=== PATIENT | female | born 1955 | race American Indian/Alaskan Native ===

== ENCOUNTER 2019-12-08 19:08 | Inpatient (IN) | payer OTHER ==
[2019-12-08] MEDS ORDERED: ONDANSETRON 4 MG/2 ML INJ IV ONE (19:56)
[2019-12-08] MEDS ORDERED: LORazepam 2 MG/ML VIAL IV ONE ×2 (19:56→22:34)
[2019-12-08] MEDS ORDERED: MORPHINE 4 MG/1 ML INJ IV ONE (19:56)
[2019-12-08 19:59] LABS: Hematocrit 37.8 % (30.3-42.9); Hemoglobin 12.5 gm/dl (10.1-14.3); Mean Corpuscular HGB Conc 33 % (30-34); Mean Corpuscular Volume 89 fl (79-97); Platelet Count 363 K/mm3 (140-440); Red Blood Count 4.26 M/mm3 (3.65-5.03); Red Cell Distribution Width 14.6 % (13.2-15.2)
--- NOTE | 2019-12-08 20:02 | Emergency Department Report ---
ED General Adult HPI - General Chief complaint: Abdominal Pain Stated complaint: ABD PAIN Time Seen by Provider: 12/08/19 19:21 Source: EMS Mode of arrival: Stretcher Limitations: Language Barrier - History of Present Illness Initial comments: Patient presents to the emergency department with a chief complaint of abdominal pain that started today. Patient states she hasn't not in the middle of her stomach. Patient also has some nausea today but denies diarrhea. Patient has chest pain, sore throat, or headache. Patient has no other complaints. -: Sudden Location: abdomen Radiation: non-radiation Severity scale (0 -10): 7 Quality: sharp Consistency: constant Improves with: none Worsens with: none Associated Symptoms: denies other symptoms Treatments Prior to Arrival: none - Related Data Home Medications Medication Instructions Recorded Confirmed Last Taken Folic Acid [Folvite] 1 mg PO QDAY 05/07/16 05/07/16 05/07/16 yes metHOTREXate(DOSE WEEKLY ONLY) 2.5 mg PO DAILY 05/07/16 05/07/16 05/07/16 [metHOTREXate (DOSE WEEKLY ONLY)] yes predniSONE [Deltasone] 50 mg PO QDAY 05/07/16 05/07/16 05/07/16 yes Allergies Allergy/AdvReac Type Severity Reaction Status Date / Time No Known Allergies Allergy Verified 11/13/13 09:40 ED Review of Systems ROS: Stated complaint: ABD PAIN Other details as noted in HPI Constitutional: denies: chills, fever Eyes: denies: eye pain, eye discharge, vision change ENT: denies: ear pain, throat pain Respiratory: denies: cough, shortness of breath, wheezing Cardiovascular: denies: chest pain, palpitations Endocrine: no symptoms reported Gastrointestinal: abdominal pain. denies: nausea, diarrhea Genitourinary: denies: urgency, dysuria, discharge Musculoskeletal: denies: back pain, joint swelling, arthralgia Skin: denies: rash, lesions Neurological: denies: headache, weakness, paresthesias Psychiatric: denies: anxiety, depression Hematological/Lymphatic: denies: easy bleeding, easy bruising ED Past Medical Hx - Past Medical History Previous Medical History?: Yes Hx Diabetes: Yes Hx Arthritis: Yes - Surgical History Past Surgical History?: Yes Additional Surgical History: fibroid - Social History Smoking Status: Never Smoker - Medications Home Medications: Home Medications Medication Instructions Recorded Confirmed Last Taken Type Folic Acid [Folvite] 1 mg PO QDAY 05/07/16 05/07/16 05/07/16 History yes metHOTREXate(DOSE WEEKLY ONLY) 2.5 mg PO DAILY 05/07/16 05/07/16 05/07/16 History [metHOTREXate (DOSE WEEKLY ONLY)] yes predniSONE [Deltasone] 50 mg PO QDAY 05/07/16 05/07/16 05/07/16 History yes ED Physical Exam - General Limitations: Language Barrier General appearance: alert, in no apparent distress - Head Head exam: Present: atraumatic, normocephalic - Eye Eye exam: Present: normal appearance, PERRL, EOMI - ENT ENT exam: Present: mucous membranes moist - Neck Neck exam: Present: normal inspection - Respiratory Respiratory exam: Present: normal lung sounds bilaterally. Absent: respiratory distress - Cardiovascular Cardiovascular Exam: Present: regular rate, normal rhythm. Absent: systolic murmur, diastolic murmur, rubs, gallop - GI/Abdominal GI/Abdominal exam: Present: soft, tenderness, normal bowel sounds, hernia, other (patient has a anterior wall abdominal hernia that is difficult to reduce ). Absent: distended - Extremities Exam Extremities exam: Present: normal inspection - Back Exam Back exam: Present: normal inspection - Neurological Exam Neurological exam: Present: alert, oriented X3 - Psychiatric Psychiatric exam: Present: normal affect, normal mood - Skin Skin exam: Present: warm, dry, intact, normal color. Absent: rash ED Course Vital Signs 12/08/19 12/08/19 12/08/19 19:32 20:10 20:13 Temperature 97.5 F L 97.5 F L Pulse Rate 62 62 Respiratory 20 20 20 Rate Blood Pressure 162/76 Blood Pressure 162/95 [Left] O2 Sat by Pulse 98 98 98 Oximetry 12/08/19 12/08/19 12/08/19 20:55 21:25 21:56 Temperature Pulse Rate 71 Respiratory 20 20 20 Rate Blood Pressure Blood Pressure 130/73 [Left] O2 Sat by Pulse 98 Oximetry - Procedure Description Procedures done: Reduction of incarcerated ventral wall hernia. Consent was obtained. Patient laid in supine position and in Trendelenburg. Propofol was used for conscious sedation. Reduction of the hernia was done with direct pressure. Abdominal binder applied. Patient tolerated procedure well. No complications ED Medical Decision Making - Lab Data Result diagrams: 12/08/19 19:39 12/08/19 19:39 Lab Results 12/08/19 12/08/19 Range/Units 19:39 19:39 WBC 6.3 (4.5-11.0) K/mm3 RBC 4.26 (3.65-5.03) M/mm3 Hgb 12.5 (10.1-14.3) gm/dl Hct 37.8 (30.3-42.9) % MCV 89 (79-97) fl MCH 29 (28-32) pg MCHC 33 (30-34) % RDW 14.6 (13.2-15.2) % Plt Count 363 (140-440) K/mm3 Baso % (Auto) Set Up [employer] Add Manual Diff Complete Total Counted 100 Seg Neuts % (Manual) 68.0 (40.0-70.0) % Band Neutrophils % 0 % Lymphocytes % (Manual) 18.0 (13.4-35.0) % Reactive Lymphs % (Man) 0 % Monocytes % (Manual) 11.0 H (0.0-7.3) % Eosinophils % (Manual) 2.0 (0.0-4.3) % Basophils % (Manual) 1.0 (0.0-1.8) % Metamyelocytes % 0 % Myelocytes % 0 % Promyelocytes % 0 % Blast Cells % 0 % Nucleated RBC % Not Reportable Seg Neutrophils # Man 4.3 (1.8-7.7) K/mm3 Band Neutrophils # 0.0 K/mm3 Lymphocytes # (Manual) 1.1 L (1.2-5.4) K/mm3 Abs React Lymphs (Man) 0.0 K/mm3 Monocytes # (Manual) 0.7 (0.0-0.8) K/mm3 Eosinophils # (Manual) 0.1 (0.0-0.4) K/mm3 Basophils # (Manual) 0.1 (0.0-0.1) K/mm3 Metamyelocytes # 0.0 K/mm3 Myelocytes # 0.0 K/mm3 Promyelocytes # 0.0 K/mm3 Blast Cells # 0.0 K/mm3 WBC Morphology Not Reportable Hypersegmented Neuts Not Reportable Hyposegmented Neuts Not Reportable Hypogranular Neuts Not Reportable Smudge Cells Not Reportable Toxic Granulation Not Reportable Toxic Vacuolation Not Reportable Dohle Bodies Not Reportable Pelger-Huet Anomaly Not Reportable Kwaku Rods Not Reportable Platelet Estimate Not Reportable Clumped Platelets Not Reportable Plt Clumps, EDTA Not Reportable Large Platelets Not Reportable Giant Platelets Not Reportable Platelet Satelliting Not Reportable Plt Morphology Comment Not Reportable RBC Morphology Normal Dimorphic RBCs Not Reportable Polychromasia Not Reportable Hypochromasia Not Reportable Poikilocytosis Not Reportable Anisocytosis Not Reportable Microcytosis Not Reportable Macrocytosis Not Reportable Spherocytes Not Reportable Pappenheimer Bodies Not Reportable Sickle Cells Not Reportable Target Cells Not Reportable Tear Drop Cells Not Reportable Ovalocytes Not Reportable Helmet Cells Not Reportable [place] Bodies Not Reportable [place] Rings Not Reportable Rosy Cells Not Reportable Bite Cells Not Reportable Crenated Cell Not Reportable Elliptocytes Not Reportable Acanthocytes (Spur) Not Reportable Rouleaux Not Reportable Hemoglobin C Crystals Not Reportable Schistocytes Not Reportable Malaria parasites Not Reportable Jorge Bodies Not Reportable Hem Pathologist Commnt No Sodium 138 (137-145) mmol/L Potassium 4.1 (3.6-5.0) mmol/L Chloride 99.7 (98-107) mmol/L Carbon Dioxide 21 L (22-30) mmol/L Anion Gap 21 mmol/L BUN 16 (7-17) mg/dL Creatinine 0.6 L (0.7-1.2) mg/dL Estimated GFR > 60 ml/min BUN/Creatinine Ratio 27 % Glucose 118 H (65-100) mg/dL Calcium 10.0 (8.4-10.2) mg/dL Total Bilirubin 0.20 (0.1-1.2) mg/dL AST 19 (5-40) units/L ALT 11 (7-56) units/L Alkaline Phosphatase 74 (35-129) units/L Total Protein 8.0 (6.3-8.2) g/dL Albumin 4.2 (3.9-5) g/dL Albumin/Globulin Ratio 1.1 % Lipase 34 (13-60) units/L - Radiology Data Radiology results: report reviewed - Medical Decision Making The patient's ventral hernia was palpated and reduction was attempted multiple times without success CT results show an incarcerated ventral wall hernia Spoke to Dr. Anya landis the patient did be sedated and an attempt made to reduce the hernia again and then admission Critical care attestation.: If time is entered above; I have spent that time in minutes in the direct care of this critically ill patient, excluding procedure time. ED Disposition Clinical Impression: Hernia, ventral Disposition: DC-09 OP ADMIT IP TO THIS HOSP Is pt being admited?: Yes Does the pt Need Aspirin: No Condition: Fair Instructions: Ventral Hernia (ED), Abdominal Pain (ED) Additional Instructions: return if worse Referrals: PRIMARY CARE, [Primary Care Provider] - 3-5 Days Time of Disposition: 23:28
[2019-12-08 20:14] LABS: Alanine Aminotransferase 11 units/L (7-56); Albumin 4.2 g/dL (3.9-5); BUN/Creatinine Ratio 27; Blood Urea Nitrogen 16 mg/dL (7-17); Hemolysis Index 9
[2019-12-08 20:43] LABS: RBC Morphology Normal; Total Cells Counted 100
--- NOTE | 2019-12-08 22:10 | Cat Scan Report ---
CT abdomen pelvis w con INDICATION: abdominal pain. TECHNIQUE: All CT scans at this location are performed using the following dose modulation technique: Automated exposure control. CONTRAST: Omnipaque 300, 100 cc IV injection. COMPARISON: None available. CT chest: The parenchymal organs are unremarkable in appearance. Negative for abdominal mass, adenopa thy or fluid collection. A midline ventral hernia approximately 5 cm above the umbilicus contains a l oop of small bowel which is dilated. There is adjacent inflammation. No significant dilatation of bow el is seen proximal or distal to the hernia. AP pelvis: Negative for mass, fluid or inflammation. Status post previous hysterectomy. The bladder is moderately distended. Diverticula at the descending and sigmoid colon's are noninflamed. IMPRESSION: 1. Incarcerated loop of small bowel at a ventral hernia anteriorly with adjacent inflammation. 2. Noninflamed colonic diverticulosis. 3. Moderate bladder distention. Signer Name: Dhruv Rene MD Signed: 12/08/2019 10:06 PM Workstation Name: [id number]
[2019-12-08] MEDS ORDERED: LORazepam 2 MG/ML VIAL ONE (22:33)
[2019-12-09] MEDS ORDERED: PROPOFOL 200 MG/20 ML VIAL IV ONE ×3 (00:09→11:54)
[2019-12-09] MEDS ORDERED: ONDANSETRON 4 MG/2 ML INJ IV ONE (00:09)
[2019-12-09] MEDS ORDERED: SODIUM CHLORIDE 0.9% 1000 ML 1,000 ML IV ONE (01:00)
[2019-12-09] MEDS ORDERED: SODIUM CHLORIDE 0.9% 1000 ML 1,000 ML ONE (01:02)
--- NOTE | 2019-12-09 02:18 | History and Physical Report ---
History of Present Illness History of present illness: 64-year-old woman with a history of hypertension, rheumatoid arthritis comes emergency room with complaints of abdominal pain that started today. She states that she took her son car to the dealer for repair, when she got home she had an acute onset of abdominal pain in the mid abdomen which he describes as a dull pain, constant, intensity 9/10, no radiation, relieved with pain medication given in the emergency room. She had 3 episodes of nausea vomiting, she was brought to the emergency room for evaluation. She was found to have incarcerated hernia, 3 attempts were made to reduce the hernia without success, she was then given sedation and the hernia was reduced on the fourth attempt Review Of Systems: Constitutional: no weight loss, chills, fever Ears, eyes, nose, mouth and throat: no nasal congestion, no nasal discharge, no sinus pressure, blurry vision, diplopia Neck: No neck pain or rigidity. Cardiovascular: No palpitations, chest pain Respiratory: No cough, shortness of breath Gastrointestinal: No hematochezia Genitourinary : no dysuria, frequency , hematuria Musculoskeletal: no muscle ache , joint pain Integumentary: no rash, no pruritis Neurological: no parathesias, focal weakness Endocrine: no cold or heat intolerance, no polyuria or polydipsia Hematologic/Lymphatic: no easy bruising, no easy bleeding, no gland swelling Allergic/Immunologic: no urticaria, no angioedema. PAST MEDICAL HISTORY: hypertension, rheumatoid arthritis PAST SURGICAL HISTORY: Removal of fibroids SOCIAL HISTORY: No alcohol, no tobacco or drugs FAMILY HISTORY: hypertension Medications and Allergies Allergies Allergy/AdvReac Type Severity Reaction Status Date / Time No Known Allergies Allergy Verified 11/13/13 09:40 Home Medications Medication Instructions Recorded Confirmed Last Taken Type Folic Acid [Folvite] 1 mg PO QDAY 05/07/16 12/09/19 05/07/16 History yes metHOTREXate(DOSE WEEKLY ONLY) 2.5 mg PO DAILY 05/07/16 12/09/19 05/07/16 History [metHOTREXate (DOSE WEEKLY ONLY)] yes predniSONE [Deltasone] 5 mg PO QDAY 05/07/16 12/09/19 05/07/16 History yes Metformin HCl [metFORMIN] 1,000 mg PO BID 12/09/19 12/09/19 Unknown History Active Meds: Active Medications Enoxaparin Sodium (Enoxaparin) 30 mg SUB-Q QDAY [facility] Exam - Physical Exam Narrative exam: Gen. appearance: Patient lying in bed, no apparent distress HEENT: Normocephalic, atraumatic, pupils equally round and reactive to light, extraocular movement intact, and no sclericterus,. No JVD or thyromegaly or nodule,neck supple, no carotid bruit ,mucous membranes moist, no exudate or erythema Heart: S1, S2, regular rate and rhythm Lungs: Clear to auscultation bilaterally, breathing comfortable Abdomen: +Abdominal binder, positive bowel sounds, nontender, nondistended, no organomegaly Extremity: No edema, cyanosis, clubbing Skin: No rash, nodules, warm, dry Neuro: Oriented 3, cranial nerves II-12 intact, speech is fluent, motor and sensory intact - Constitutional Vitals: Temp Pulse Resp BP Pulse Ox 97.5 F L 77 20 142/77 99 12/08/19 20:13 12/09/19 01:00 12/09/19 01:00 12/09/19 01:00 12/09/19 01:00 Results - Labs CBC & Chem 7: 12/08/19 19:39 12/08/19 19:39 Labs: Abnormal lab results 12/08/19 12/08/19 Range/Units 19:39 19:39 Monocytes % (Manual) 11.0 H (0.0-7.3) % Lymphocytes # (Manual) 1.1 L (1.2-5.4) K/mm3 Carbon Dioxide 21 L (22-30) mmol/L Creatinine 0.6 L (0.7-1.2) mg/dL Glucose 118 H (65-100) mg/dL - Imaging and Cardiology CT scan - abdomen: report reviewed CT scan - pelvis: report reviewed Assessment and Plan Assessment Incarcerated hernia, status post reduction N.p.o., start IV fluid, surgery was consulted see the patient Start IV morphine Hypertension IV hydralazine as needed for blood pressure control History of rheumatoid arthritis on chronic steroid Start stress dose IV steroids DVT prophylaxis
[2019-12-09] MEDS ORDERED: ONDANSETRON 4 MG/2 ML INJ IV PRN ×3 (03:27→15:42)
[2019-12-09] MEDS ORDERED: ACETAMINOPHEN 650 MG RECT SUPP PR PRN (03:27)
[2019-12-09] MEDS ORDERED: hydrALAZINE 20 MG/1 ML INJ IV PRN (03:34)
[2019-12-09] MEDS ORDERED: SODIUM CHLORIDE 0.45% 1000 ML 1,000 ML IV ONE (03:38)
[2019-12-09] MEDS ORDERED: SODIUM CHLORIDE 0.45% 1000 ML 1,000 ML IV SCH (04:00)
[2019-12-09 04:23] LABS: Bilirubin,Urine NEG (Negative); Blood,Urine NEG (Negative); Color,Urine Straw (Yellow); Mucus,Urine FEW /HPF; Protein,Urine <15 mg/dL mg/dL (Negative); Urobilinogen,Urine < 2.0 mg/dL (<2.0)
[2019-12-09] MEDS: HYDROCORTISONE SOD SUCC 100 MG/2 ML VIAL IV SCH ×2 (06:01→14:04)
[2019-12-09 08:50] LABS: Basophils # (Auto) 0.1 K/mm3 (0.0-0.1); Basophils % (Auto) 0.8 % (0.0-1.8); Eosinophils # (Auto) 0.1 K/mm3 (0.0-0.4); Hematocrit 37.8 % (30.3-42.9); Hemoglobin 12.4 gm/dl (10.1-14.3); Lymphocytes % (Auto) 16.5 % (13.4-35.0); Mean Corpuscular HGB Conc 33 % (30-34); Mean Corpuscular Volume 88 fl (79-97); Monocytes # (Auto) 0.3 K/mm3 (0.0-0.8); Monocytes % (Auto) 5.2 % (0.0-7.3); Platelet Count 381 K/mm3 (140-440); Red Blood Count 4.28 M/mm3 (3.65-5.03); Red Cell Distribution Width 14.7 % (13.2-15.2)
[2019-12-09 09:15] LABS: BUN/Creatinine Ratio 15; Blood Urea Nitrogen 9 mg/dL (7-17); Calcium 9.4 mg/dL (8.4-10.2); Hemolysis Index 4
--- NOTE | 2019-12-09 09:15 | Consultation ---
History of Present Illness Consult date: 12/09/19 Reason for consult: hernia Chief complaint: abdominal pain - History of present illness History of present illness: 64 year old female presented to ED with a several hour history of acute abdominal pain and palpable 'knot' on her abdominal wall. she says she has never had this before and she complained of some nausea. CT scan showed ventral hernia with incarcerated small bowel. The ED was able to reduce the hernia under conscious sedation. This morning she says her pain is improved compared to pre-r eduction but still significant. Past History Past Medical History: arthritis, diabetes Past Surgical History: Other (pelvic surgery) Social history: no significant social history Medications and Allergies Allergies Allergy/AdvReac Type Severity Reaction Status Date / Time No Known Allergies Allergy Verified 11/13/13 09:40 Home Medications Medication Instructions Recorded Confirmed Last Taken Type Folic Acid [Folvite] 1 mg PO QDAY 05/07/16 12/09/19 05/07/16 History yes metHOTREXate(DOSE WEEKLY ONLY) 2.5 mg PO DAILY 05/07/16 12/09/19 05/07/16 History [metHOTREXate (DOSE WEEKLY ONLY)] yes predniSONE [Deltasone] 5 mg PO QDAY 05/07/16 12/09/19 05/07/16 History yes Metformin HCl [metFORMIN] 1,000 mg PO BID 12/09/19 12/09/19 Unknown History Active Meds: Active Medications Acetaminophen (Tylenol) 650 mg GA Q4H PRN PRN Reason: Pain MILD(1-3)/Fever >100.5/CURRY Enoxaparin Sodium (Enoxaparin) 40 mg SUB-Q QDAY [facility] Hydralazine HCl (Apresoline) 5 mg IV Q6H PRN PRN Reason: Hypertension Hydrocortisone Sodium Succinate (Solu-Cortef) 100 mg IV Q8HR [facility] Last Admin: 12/09/19 06:01 Dose: 100 mg Documented by: Sodium Chloride (Nacl 0.45% 1000 Ml) 1,000 mls @ 75 mls/hr IV DIRECT [facility] Last Admin: 12/09/19 03:39 Dose: 75 mls/hr Documented by: Morphine Sulfate (Morphine) 2 mg IV Q4H PRN PRN Reason: Pain, Moderate (4-6) Ondansetron HCl (Zofran) 4 mg IV Q8H PRN PRN Reason: Nausea And Vomiting Sodium Chloride (Sodium Chloride Flush Syringe 10 Ml) 10 ml IV BID [facility]AMA Sodium Chloride (Sodium Chloride Flush Syringe 10 Ml) 10 ml IV PRN PRN PRN Reason: LINE FLUSH Review of Systems - Respiratory no shortness of breath - Gastrointestinal abdominal pain, nausea Exam Vital Signs Temp Pulse Resp BP Pulse Ox 97.5 F L 62 20 162/76 98 12/08/19 19:32 12/08/19 19:32 12/08/19 19:32 12/08/19 19:32 12/08/19 19:32 - General physical appearance Positive: well developed, well nourished, moderate distress - Respiratory Positive: normal expansion, normal respiratory effort - Abdomen Abdomen: Present: soft, tender, other (abdominal binder in place, hernia feels partially reduced. tender to palpation. ). Absent: rigid Results - Labs 12/09/19 08:08 12/08/19 19:39 Abnormal lab results 12/08/19 12/08/19 12/09/19 Range/Units 19:39 19:39 02:12 Lymph # (1.2-5.4) K/mm3 Seg Neutrophils % (40.0-70.0) % Monocytes % (Manual) 11.0 H (0.0-7.3) % Lymphocytes # (Manual) 1.1 L (1.2-5.4) K/mm3 Carbon Dioxide 21 L (22-30) mmol/L Creatinine 0.6 L (0.7-1.2) mg/dL Glucose 118 H (65-100) mg/dL Ur Specific [place] 1.034 H (1.003-1.030) 12/09/19 Range/Units 08:08 Lymph # 1.0 L (1.2-5.4) K/mm3 Seg Neutrophils % 76.5 H (40.0-70.0) % Monocytes % (Manual) (0.0-7.3) % Lymphocytes # (Manual) (1.2-5.4) K/mm3 Carbon Dioxide (22-30) mmol/L Creatinine (0.7-1.2) mg/dL Glucose (65-100) mg/dL Ur Specific [place] (1.003-1.030) Diabetes panel 12/08/19 Range/Units 19:39 Sodium 138 (137-145) mmol/L Potassium 4.1 (3.6-5.0) mmol/L Chloride 99.7 (98-107) mmol/L Carbon Dioxide 21 L (22-30) mmol/L BUN 16 (7-17) mg/dL Creatinine 0.6 L (0.7-1.2) mg/dL Glucose 118 H (65-100) mg/dL Calcium 10.0 (8.4-10.2) mg/dL AST 19 (5-40) units/L ALT 11 (7-56) units/L Alkaline Phosphatase 74 (35-129) units/L Total Protein 8.0 (6.3-8.2) g/dL Albumin 4.2 (3.9-5) g/dL Calcium panel 12/08/19 Range/Units 19:39 Calcium 10.0 (8.4-10.2) mg/dL Albumin 4.2 (3.9-5) g/dL Pituitary panel 12/08/19 Range/Units 19:39 Sodium 138 (137-145) mmol/L Potassium 4.1 (3.6-5.0) mmol/L Chloride 99.7 (98-107) mmol/L Carbon Dioxide 21 L (22-30) mmol/L BUN 16 (7-17) mg/dL Creatinine 0.6 L (0.7-1.2) mg/dL Glucose 118 H (65-100) mg/dL Calcium 10.0 (8.4-10.2) mg/dL Adrenal panel 12/08/19 Range/Units 19:39 Sodium 138 (137-145) mmol/L Potassium 4.1 (3.6-5.0) mmol/L Chloride 99.7 (98-107) mmol/L Carbon Dioxide 21 L (22-30) mmol/L BUN 16 (7-17) mg/dL Creatinine 0.6 L (0.7-1.2) mg/dL Glucose 118 H (65-100) mg/dL Calcium 10.0 (8.4-10.2) mg/dL Total Bilirubin 0.20 (0.1-1.2) mg/dL AST 19 (5-40) units/L ALT 11 (7-56) units/L Alkaline Phosphatase 74 (35-129) units/L Total Protein 8.0 (6.3-8.2) g/dL Albumin 4.2 (3.9-5) g/dL Assessment and Plan incarcerated ventral hernia with incomplete reduction of small bowel. stable and afebrile. Spoke with patient and son over the phone and explained risks, benefits of lap ventral hernia repair with mesh, and would evaluate the viability of bowel during surgery. pt scheduled for urgent ventral hernia repair. keep NPO and with abdominal binder in place.
[2019-12-09] MEDS: MORPHINE 2 MG/1 ML INJ IV PRN (09:43)
--- NOTE | 2019-12-09 11:15 | Anesthesia Consultation ---
Anesthesia Consult and Med Hx Date of service: 12/09/19 - Airway Anesthetic Teeth Evaluation: Good ROM Head & Neck: Adequate Mental/Hyoid Distance: Adequate Mallampati Class: Class III Intubation Access Assessment: Probably Good - Pre-Operative Health Status ASA Pre-Surgery Classification: ASA3 Proposed Anesthetic Plan: General - Pulmonary Hx Asthma: No COPD: No Hx Pneumonia: No - Cardiovascular System Hx Hypertension: Yes - Central Nervous System Hx Psychiatric Problems: No - Gastrointestinal Hx Gastroesophageal Reflux Disease: Yes - Endocrine Hx End Stage Renal Disease: No Hx Non-Insulin Dependent Diabetes: Yes
--- NOTE | 2019-12-09 11:15 | Anesthesia Day of Surgery ---
Anesthesia Day of Surgery - Day of Surgery Patient Examined: Yes Patient H&P Reviewed: Yes Patient is NPO: Yes Beta Blockers: No
[2019-12-09] MEDS ORDERED: ROCURONIUM 50 MG/5 ML INJ IV ONE (11:54)
[2019-12-09] MEDS ORDERED: LIDOCAINE MPF (2%) 20 MG/1 ML VIAL 5 ML ONE (11:54)
[2019-12-09] MEDS ORDERED: MIDAZOLAM 2 MG/2 ML INJ ONE (11:54)
[2019-12-09] MEDS ORDERED: fentaNYL 100 MCG/2 ML INJ ONE (11:54)
[2019-12-09] MEDS ORDERED: HYDROmorphone 1 MG/1 ML INJ IV PRN (11:55)
[2019-12-09] MEDS ORDERED: LACTATED RINGERS 1,000 ML ONE (12:16)
[2019-12-09] MEDS ORDERED: BUPIVACAINE/PF (0.25%) 2.5 MG/ML 30 ML VIAL INFILTRATI ONE (12:42)
[2019-12-09] MEDS ORDERED: LIDOCAINE 1%/EPINEPHRINE 1:100,000 VIAL (20 ML) INFILTRATI ONE ×2 (12:42→12:47)
[2019-12-09] MEDS ORDERED: BUPIVACAINE/PF (0.5%) 5 MG/1 ML 30 ML VIAL INFILTRATI ONE ×2 (12:43→12:47)
[2019-12-09] MEDS: ENOXAPARIN 40 MG/0.4 ML INJ SUB-Q SCH (12:43)
[2019-12-09] MEDS ORDERED: SODIUM CHLORIDE 0.9% IRR 1,000 ML BOTTLE IR ONE (12:47)
[2019-12-09] MEDS ORDERED: PHENYLEPHRINE/NS 1,000 MCG/10 ML SYRINGE (OR USE) IV ONE (12:52)
[2019-12-09] MEDS ORDERED: dexAMETHasone 20 MG/5 ML VIAL ONE (13:10)
[2019-12-09] MEDS ORDERED: NEOSTIGMINE 10MG/10 ML INJ MDV ONE (13:10)
[2019-12-09] MEDS ORDERED: GLYCOPYRROLATE 0.4 MG/2 ML INJ ONE (13:10)
[2019-12-09] MEDS ORDERED: KETOROLAC 30 MG/1 ML INJ ONE (13:10)
[2019-12-09] MEDS ORDERED: ONDANSETRON 4 MG/2 ML INJ ONE (13:10)
[2019-12-09] MEDS ORDERED: HYDROmorphone 1 MG/1 ML INJ ONE (13:11)
--- NOTE | 2019-12-09 16:15 | Progress Note ---
Assessment and Plan Assessment and plan: --Incarcerated ventral hernia ; Status post laparoscopic-assisted open reduction and primary repair of ventral hernia Segmental small bowel resection and anastomosis Patient tolerated the procedure well --Hypertension; moderate control IV hydralazine as needed for blood pressure control --History of rheumatoid arthritis on chronic steroid Start stress dose IV steroids --DVT prophylaxis; Lovenox --Full CODE STATUS Monitor closely and adjust management as needed Consults and recommendations noted and appreciated Advanced care, 32 minutes History Interval history: Patient seen and examined medical records reviewed Admitted with incarcerated ventral hernia with ischemic small bowel Status post laparoscopic-assisted open reduction and primary repair of ventral hernia Segmental small bowel resection and anastomosis Patient tolerated the procedure well Hospitalist Physical - Constitutional Vitals: Temp Pulse Resp BP Pulse Ox 97.6 F 70 16 117/73 97 12/09/19 15:48 12/09/19 15:48 12/09/19 15:48 12/09/19 15:48 12/09/19 15:48 General appearance: Present: mild distress, well-nourished, obese - EENT Eyes: Present: PERRL, EOM intact - Neck Neck: Present: supple, normal ROM - Respiratory Respiratory effort: normal Respiratory: bilateral: diminished, negative: rales, rhonchi, wheezing - Cardiovascular Rhythm: regular Heart Sounds: Present: S1 & S2 - Extremities Extremities: no ischemia, pulses intact - Abdominal General gastrointestinal: soft, tender (guarding or rigidity), non-distended, hypoactive bowel sounds - Integumentary Integumentary: Present: clear, warm - Psychiatric Psychiatric: appropriate mood/affect, cooperative - Neurologic Neurologic: CNII-XII intact, moves all extremities EDWIN score - Edwin Score Age > 65: (0) No Aspirin use within the Past 7 Days: (0) No 3 or more CAD Risk Factors: (0) No 2 or more Angina events in past 24 hrs: (0) No Known CAD with more than 50% Stenosis: (0) No Elevated Cardiac Markers: (0) No ST Deviation Greater than 0.5mm: (0) No EDWIN Score: 0 Results - Labs CBC & Chem 7: 12/09/19 08:08 12/09/19 08:08 Labs: Laboratory Last Values WBC 6.3 K/mm3 (4.5-11.0) 12/09/19 08:08 RBC 4.28 M/mm3 (3.65-5.03) 12/09/19 08:08 Hgb 12.4 gm/dl (10.1-14.3) 12/09/19 08:08 Hct 37.8 % (30.3-42.9) 12/09/19 08:08 MCV 88 fl (79-97) 12/09/19 08:08 MCH 29 pg (28-32) 12/09/19 08:08 MCHC 33 % (30-34) 12/09/19 08:08 RDW 14.7 % (13.2-15.2) 12/09/19 08:08 Plt Count 381 K/mm3 (140-440) 12/09/19 08:08 Lymph % (Auto) 16.5 % (13.4-35.0) 12/09/19 08:08 Coffee % (Auto) 5.2 % (0.0-7.3) 12/09/19 08:08 Eos % (Auto) 1.0 % (0.0-4.3) 12/09/19 08:08 Baso % (Auto) 0.8 % (0.0-1.8) 12/09/19 08:08 Lymph # 1.0 K/mm3 (1.2-5.4) L 12/09/19 08:08 Coffee # 0.3 K/mm3 (0.0-0.8) 12/09/19 08:08 Eos # 0.1 K/mm3 (0.0-0.4) 12/09/19 08:08 Baso # 0.1 K/mm3 (0.0-0.1) 12/09/19 08:08 Add Manual Diff Complete 12/08/19 19:39 Total Counted 100 12/08/19 19:39 Seg Neutrophils % 76.5 % (40.0-70.0) H 12/09/19 08:08 Seg Neuts % (Manual) 68.0 % (40.0-70.0) 12/08/19 19:39 Band Neutrophils % 0 % 12/08/19 19:39 Lymphocytes % (Manual) 18.0 % (13.4-35.0) 12/08/19 19:39 Reactive Lymphs % (Man) 0 % 12/08/19 19:39 Monocytes % (Manual) 11.0 % (0.0-7.3) H 12/08/19 19:39 Eosinophils % (Manual) 2.0 % (0.0-4.3) 12/08/19 19:39 Basophils % (Manual) 1.0 % (0.0-1.8) 12/08/19 19:39 Metamyelocytes % 0 % 12/08/19 19:39 Myelocytes % 0 % 12/08/19 19:39 Promyelocytes % 0 % 12/08/19 19:39 Blast Cells % 0 % 12/08/19 19:39 Nucleated RBC % Not Reportable 12/08/19 19:39 Seg Neutrophils # 4.8 K/mm3 (1.8-7.7) 12/09/19 08:08 Seg Neutrophils # Man 4.3 K/mm3 (1.8-7.7) 12/08/19 19:39 Band Neutrophils # 0.0 K/mm3 12/08/19 19:39 Lymphocytes # (Manual) 1.1 K/mm3 (1.2-5.4) L 12/08/19 19:39 Abs React Lymphs (Man) 0.0 K/mm3 12/08/19 19:39 Monocytes # (Manual) 0.7 K/mm3 (0.0-0.8) 12/08/19 19:39 Eosinophils # (Manual) 0.1 K/mm3 (0.0-0.4) 12/08/19 19:39 Basophils # (Manual) 0.1 K/mm3 (0.0-0.1) 12/08/19 19:39 Metamyelocytes # 0.0 K/mm3 12/08/19 19:39 Myelocytes # 0.0 K/mm3 12/08/19 19:39 Promyelocytes # 0.0 K/mm3 12/08/19 19:39 Blast Cells # 0.0 K/mm3 12/08/19 19:39 WBC Morphology Not Reportable 12/08/19 19:39 Hypersegmented Neuts Not Reportable 12/08/19 19:39 Hyposegmented Neuts Not Reportable 12/08/19 19:39 Hypogranular Neuts Not Reportable 12/08/19 19:39 Smudge Cells Not Reportable 12/08/19 19:39 Toxic Granulation Not Reportable 12/08/19 19:39 Toxic Vacuolation Not Reportable 12/08/19 19:39 Dohle Bodies Not Reportable 12/08/19 19:39 Pelger-Huet Anomaly Not Reportable 12/08/19 19:39 Kwaku Rods Not Reportable 12/08/19 19:39 Platelet Estimate Not Reportable 12/08/19 19:39 Clumped Platelets Not Reportable 12/08/19 19:39 Plt Clumps, EDTA Not Reportable 12/08/19 19:39 Large Platelets Not Reportable 12/08/19 19:39 Giant Platelets Not Reportable 12/08/19 19:39 Platelet Satelliting Not Reportable 12/08/19 19:39 Plt Morphology Comment Not Reportable 12/08/19 19:39 RBC Morphology Normal 12/08/19 19:39 Dimorphic RBCs Not Reportable 12/08/19 19:39 Polychromasia Not Reportable 12/08/19 19:39 Hypochromasia Not Reportable 12/08/19 19:39 Poikilocytosis Not Reportable 12/08/19 19:39 Anisocytosis Not Reportable 12/08/19 19:39 Microcytosis Not Reportable 12/08/19 19:39 Macrocytosis Not Reportable 12/08/19 19:39 Spherocytes Not Reportable 12/08/19 19:39 Pappenheimer Bodies Not Reportable 12/08/19 19:39 Sickle Cells Not Reportable 12/08/19 19:39 Target Cells Not Reportable 12/08/19 19:39 Tear Drop Cells Not Reportable 12/08/19 19:39 Ovalocytes Not Reportable 12/08/19 19:39 Helmet Cells Not Reportable 12/08/19 19:39 Richards-[place] Bodies Not Reportable 12/08/19 19:39 Rochert Rings Not Reportable 12/08/19 19:39 Rosy Cells Not Reportable 12/08/19 19:39 Bite Cells Not Reportable 12/08/19 19:39 Crenated Cell Not Reportable 12/08/19 19:39 Elliptocytes Not Reportable 12/08/19 19:39 Acanthocytes (Spur) Not Reportable 12/08/19 19:39 Rouleaux Not Reportable 12/08/19 19:39 Hemoglobin C Crystals Not Reportable 12/08/19 19:39 Schistocytes Not Reportable 12/08/19 19:39 Malaria parasites Not Reportable 12/08/19 19:39 Jorge Bodies Not Reportable 12/08/19 19:39 Hem Pathologist Commnt No 12/08/19 19:39 Sodium 139 mmol/L (137-145) 12/09/19 08:08 Potassium 4.1 mmol/L (3.6-5.0) 12/09/19 08:08 Chloride 102.9 mmol/L (98-107) 12/09/19 08:08 Carbon Dioxide 20 mmol/L (22-30) L 12/09/19 08:08 Anion Gap 20 mmol/L 12/09/19 08:08 BUN 9 mg/dL (7-17) 12/09/19 08:08 Creatinine 0.6 mg/dL (0.7-1.2) L 12/09/19 08:08 Estimated GFR > 60 ml/min 12/09/19 08:08 BUN/Creatinine Ratio 15 % 12/09/19 08:08 Glucose 102 mg/dL (65-100) H 12/09/19 08:08 Lactic Acid 1.00 mmol/L (0.7-2.0) 12/09/19 09:36 Calcium 9.4 mg/dL (8.4-10.2) 12/09/19 08:08 Total Bilirubin 0.20 mg/dL (0.1-1.2) 12/08/19 19:39 AST 19 units/L (5-40) 12/08/19 19:39 ALT 11 units/L (7-56) 12/08/19 19:39 Alkaline Phosphatase 74 units/L (35-129) 12/08/19 19:39 Total Protein 8.0 g/dL (6.3-8.2) 12/08/19 19:39 Albumin 4.2 g/dL (3.9-5) 12/08/19 19:39 Albumin/Globulin Ratio 1.1 % 12/08/19 19:39 Lipase 34 units/L (13-60) 12/08/19 19:39 Urine Color Straw (Yellow) 12/09/19 02:12 Urine Turbidity Clear (Clear) 12/09/19 02:12 Urine pH 7.0 (5.0-7.0) 12/09/19 02:12 Ur Specific [place] 1.034 (1.003-1.030) H 12/09/19 02:12 Urine Protein <15 mg/dl mg/dL (Negative) 12/09/19 02:12 Urine Glucose (UA) Neg mg/dL (Negative) 12/09/19 02:12 Urine Ketones 20 mg/dL (Negative) 12/09/19 02:12 Urine Blood Neg (Negative) 12/09/19 02:12 Urine Nitrite Neg (Negative) 12/09/19 02:12 Urine Bilirubin Neg (Negative) 12/09/19 02:12 Urine Urobilinogen < 2.0 mg/dL (<2.0) 12/09/19 02:12 Ur Leukocyte Esterase Sm (Negative) 12/09/19 02:12 Urine WBC (Auto) 3.0 /HPF (0.0-6.0) 12/09/19 02:12 Urine RBC (Auto) 1.0 /HPF (0.0-6.0) 12/09/19 02:12 U Epithel Cells (Auto) 1.0 /HPF (0-13.0) 12/09/19 02:12 Urine Mucus Few /HPF 12/09/19 02:12 Active Medications - Current Medications Current Medications: Generic Name Dose Route Start Last Admin Trade Name Freq PRN Reason Stop Dose Admin Acetaminophen 650 mg 12/09/19 03:27 Tylenol GA Q4H PRN Pain MILD(1-3)/Fever >100.5/CURRY Enoxaparin Sodium 40 mg 12/09/19 10:00 12/09/19 12:43 Enoxaparin SUB-Q Not Given QDAY USAMA Hydralazine HCl 5 mg 12/09/19 03:34 Apresoline IV Q6H PRN Hypertension Hydromorphone HCl 0.5 mg 12/09/19 11:55 Dilaudid IV 12/09/19 23:00 Q10MIN PRN Pain , Severe (7-10) Sodium Chloride 1,000 mls @ 75 mls/hr 12/09/19 04:00 12/09/19 03:39 Nacl 0.45% 1000 Ml IV 75 mls/hr DIRECT USAMA Administration Lactated Ringer's 1,000 mls @ 42 mls/hr 12/09/19 12:00 Lactated Ringers IV DIRECT USAMA Levofloxacin/Dextrose 500 mg in 100 mls @ 100 mls/hr 12/10/19 10:00 Levaquin 500mg/100ml IV Q24HR [facility] Protocol Morphine Sulfate 2 mg 12/09/19 03:27 12/09/19 09:43 Morphine IV 2 mg Q4H PRN Administration Pain, Moderate (4-6) Ondansetron HCl 4 mg 12/09/19 11:55 Zofran IV 12/09/19 20:00 ONCE PRN Nausea And Vomiting Ondansetron HCl 4 mg 12/09/19 15:42 Zofran IV Q4H PRN Nausea And Vomiting Sodium Chloride 10 ml 12/09/19 10:00 12/09/19 09:44 Sodium Chloride Flush Syringe 10 Ml IV 10 ml BID USAMA Administration Sodium Chloride 10 ml 12/09/19 03:27 Sodium Chloride Flush Syringe 10 Ml IV PRN PRN LINE FLUSH
--- NOTE | 2019-12-09 16:16 | Operative Report ---
Operative Report Operative Report: DATE: 12/09/2019 SURGEON: SUZANNE GARCIA MD [employer] CONSULTANT SURGEON: CHELSEA HART MD PRE-OP DX: INCARCERATED VENTRAL HERNIA POST-OP DX: INCARCERATED VENTRAL HERNIA WITH ISCHEMIC SMALL BOWEL ANESTHESIA: GETA SPECIMEN: SEGMENT OF SMALL BOWEL, HERNIA SAC EBL: <10ML PROCEDURE: 1. LAPAROSCOPIC ASSISTED OPEN REDUCTION AND PRIMARY REPAIR OF VENTRAL HERNIA 2. SEGMENTAL SMALL BOWEL RESECTION AND ANASTAMOSIS INDICATION: 64 YEAR OLD FEMALE WHO PRESENTED TO THE ED WITH VENTRAL HERNIA THAT WAS INCARCERATED WITH SMALL BOWEL. IT WAS REDUCED IN THE ED, BUT BECAME INCARCERATED AGAIN. SHE WAS CONSENTED FOR URGENT REDUCTION AND REPAIR. DETAILS OF PROCEDURE: PT WAS BROUGHT INTO OR SUITE AND LAID IN SUPINE POSITION. BILATERAL LOWER EXTREMITY SCD WERE PLACED. GENERAL ANESTHESIA WAS INDUCED WITH SUCCESSFUL ENDOTRACHEAL INTUBATION. A VALLADARES CATHETER WAS INSERTED UNDER STERILE CONDITIONS. HER ABDOMEN WAS PREPPED AND DRAPED IN STERILE FASHION. EVEN AFTER PARALYSIS WE WERE UNABLE TO REDUCE THE HERNIA. A VERESS NEEDLE WAS USED TO INSUFLATE THE ABDOMEN TO A PRESSURE OF 15 MMHG VIA A STAB WOUND TO THE LEFT SUB COSTAL REGION. USING OPTIVEW TECHNIQUE A 5MM TROCAR WAS PLACED IN THE RIGHT UPPER QUADRANT. A SECOND 5MM TROCAR WAS PLACED UNDER DIRECT VISUALIZATION IN THE RIGHT MID ABDOMEN. IT WAS ATTEMPTED TO REDUCE THE HERNIA WITH INTRA-ABDOMINAL TRACTION AND EXTERNAL PRESSURE. FOR FEAR OF INJURING THE BOWEL OR MESENTARY IT WAS DECIDED TO MAKE AN INCISION OVER THE HERNIA SAC AND DISSECT DOWN TO THE FASCIA. THE HERNIA NECK WAS NOTED TO BE TIGHT AND RELATIVELY SMALL AND ABOUT 2.5CM IN GREATEST DIAMETER. THE FASCIA WAS INCISED AND STRETCHED TO LOOSEN IT. THE HERNIA CONTENTS WERE THEN MANUALLY REDUCED INTO THE ABDOMINAL CAVITY. THE HERNIA SAC WAS EXCISED AND SENT FOR SPECIMEN. THE FASCIAL DEFECT WAS ENLARGED A SMALL AMOUNT IN THE HORIZONTAL DIRECTION. THE FASCIAL CLOSING WAS TEMPORARILY CLOSED AND THE ABDOMEN WAS INSUFLATTED. THE SMALL BOWEL THAT WAS INCARCERATED WAS NOTED TO BE SIGNIFICANTLY ISCHEMIC, A LENGTH THAT MEASURED ABOUT 3CM. IT WAS DECIDED TO RESECT THAT PORTION OF SMALL BOWEL AND WAS EXTERIORIZED THROUGH THE FASCIA DEFECT. A SIDE TO SIDE ANASTAMOSIS WAS PERFORMED BETWEEN TWO VIABLE ADJACENT LIMBS OF SMALL BOWEL WITH A LAURI STAPLER, AND THE ENTEROTOMY WAS CLOSED WITH A SECOND FIRING OF THE LAURI. THE MESENTARY WAS THEN TRANSECTED WITH THE ENSEAL DEVICE. THE MESENTERIC DEFECT WAS CLOSED WITH A RUNNING VICRYL. THE STABLE LINE WAS IMBRICATED WITH A SILK SUTURE AFTER THE ANASTAMOSIS WAS CHECKED FOR PATENCY. IT WAS REDUCED INTO THE ABDOMINAL CAVITY. THE FASCIA WAS CLOSED WITH A RUNNING PROLENE SUTURE, AND THE ABDOMINAL CAVITY WAS INSFULATED AND THE FACSIA DEFECT WAS INSPECTED AND FOUND TO BE ADEQUATE. THE ABDOMEN WAS DESUFLATED AND THE HERNIA INCISION WAS CLOSED IN LAYERED FASHION WITH VICRYL FOLLOWED BY MONOCRYL AT THE SKIN. THE TROCAR INCISIONS WERE ALSO CLOSED WITH MONOCRYL. FOLLOWED BY DERMABOND. PATIENT WAS AWOKEN AND TAKEN TO RECOVERY IN STABLE CONDITION. ALL COUNTS WERE CORRECT. COMPLICATIONS: NONE IMMEDIATE
[2019-12-09] MEDS: INSULIN LISPRO 100 UNIT/ML SUB-Q SCH ×2 (18:14→18:24)
--- NOTE | 2019-12-09 21:50 | Post Anesthesia Evaluation ---
- Post Anesthesia Evaluation Patient Participated: Yes Airway Patent: Yes Stable Respiratory Function: Yes Nausea/Vomiting: No Temp > 96.8F: Yes Pain Manageable: Yes Adequeate Hydration: Yes Anesthesia Complications: No Block Receding Appropriately: Not Applicable Patient on Ventilator: No
[2019-12-09] MEDS: LACTATED RINGERS 1,000 ML IV SCH (22:02)
[2019-12-10] MEDS: INSULIN LISPRO 100 UNIT/ML SUB-Q SCH ×4 (00:18→20:29)
[2019-12-10] MEDS: MORPHINE 2 MG/1 ML INJ IV PRN ×2 (04:17→13:35)
[2019-12-10 08:10] LABS: Hematocrit 37.5 % (30.3-42.9); Hemoglobin 12.3 gm/dl (10.1-14.3); Mean Corpuscular HGB Conc 33 % (30-34); Mean Corpuscular Volume 89 fl (79-97); Platelet Count 385 K/mm3 (140-440); Red Blood Count 4.23 M/mm3 (3.65-5.03); Red Cell Distribution Width 14.5 % (13.2-15.2)
[2019-12-10 09:14] LABS: Anisocytosis Few; Basophils % (Manual) 0 % (0.0-1.8); Eosinophils % (Manual) 0 % (0.0-4.3); Giant Platelets Rare; Platelet Estimate Consistent w Auto; Total Cells Counted 100
[2019-12-10] MEDS: ENOXAPARIN 40 MG/0.4 ML INJ SUB-Q SCH (10:14)
--- NOTE | 2019-12-10 11:16 | Progress Note ---
Assessment and Plan POD#1 s/p open ventral hernia repair with small bowel incarceration and resection of necrotic small bowel. stable, afebrile. will start clear liquids to day and advance as tolerated. pt should wear abdominal binder at all times. If she does well overnight and morning labs (wbc) trending down can discharge tomorrow. elevated wbc may be due inflammatory response after releasing cytokines into the the blood stream after release of strangulated small bowel segment. Subjective Date of service: 12/10/19 Patient Reports: Positive: feels better. Negative: vomiting (no acute events overnight. Pt says she feels much better and not really having pain. ) Objective Vital Signs - 12hr 12/10/19 12/10/19 12/10/19 00:02 04:16 07:51 Temperature 97.4 F L 98.6 F 98.7 F Pulse Rate 90 114 H 89 Respiratory 16 16 18 Rate Blood Pressure 138/77 117/80 115/85 O2 Sat by Pulse 97 94 96 Oximetry - General physical appearance well developed, well nourished, no distress - Respiratory normal expansion, normal respiratory effort - Abdomen soft, other (abdominal binder in place, appropriatley tender to deep palpation) - Labs 12/10/19 07:53 12/09/19 08:08
--- NOTE | 2019-12-10 18:22 | Progress Note ---
Assessment and Plan Assessment and plan: --Incarcerated ventral hernia ; Status post laparoscopic-assisted open reduction and primary repair of ventral hernia Segmental small bowel resection and anastomosis Surgery following, started clear liquids Continue postop care --Hypertension; moderate control IV hydralazine as needed for blood pressure control --History of rheumatoid arthritis on chronic steroid Start stress dose IV steroids --DVT prophylaxis; Lovenox --Full CODE STATUS Monitor closely and adjust management as needed Consults and recommendations noted and appreciated Plan of care is reviewed with the patient History Interval history: POD#1 s/p open ventral hernia repair with small bowel incarceration and resection of necrotic small bowel. Patient seen and examined Patient is afebrile. Patient c/o some abd pain. Denies nausea and vomiting surg started clear liquids to day and advance as tolerated. Hospitalist Physical - Constitutional Vitals: Temp Pulse Resp BP Pulse Ox 98.7 F 113 H 18 127/84 94 12/10/19 15:39 12/10/19 15:39 12/10/19 15:39 12/10/19 15:39 12/10/19 15:39 General appearance: Present: no acute distress, well-nourished, obese - EENT Eyes: Present: PERRL, EOM intact - Neck Neck: Present: supple, normal ROM - Respiratory Respiratory effort: normal Respiratory: bilateral: diminished, negative: rales, rhonchi, wheezing - Cardiovascular Rhythm: regular Heart Sounds: Present: S1 & S2 - Extremities Extremities: no ischemia, No edema - Abdominal General gastrointestinal: soft, non-tender, non-distended, hypoactive bowel sounds - Integumentary Integumentary: Present: clear, warm - Psychiatric Psychiatric: appropriate mood/affect, cooperative - Neurologic Neurologic: moves all extremities EDWIN score - Edwin Score Age > 65: (0) No Aspirin use within the Past 7 Days: (0) No 3 or more CAD Risk Factors: (0) No 2 or more Angina events in past 24 hrs: (0) No Known CAD with more than 50% Stenosis: (0) No Elevated Cardiac Markers: (0) No ST Deviation Greater than 0.5mm: (0) No EDWIN Score: 0 Results - Labs CBC & Chem 7: 12/11/19 05:24 12/09/19 08:08 Labs: Laboratory Last Values WBC 18.0 K/mm3 (4.5-11.0) H 12/10/19 07:53 RBC 4.23 M/mm3 (3.65-5.03) 12/10/19 07:53 Hgb 12.3 gm/dl (10.1-14.3) 12/10/19 07:53 Hct 37.5 % (30.3-42.9) 12/10/19 07:53 MCV 89 fl (79-97) 12/10/19 07:53 MCH 29 pg (28-32) 12/10/19 07:53 MCHC 33 % (30-34) 12/10/19 07:53 RDW 14.5 % (13.2-15.2) 12/10/19 07:53 Plt Count 385 K/mm3 (140-440) 12/10/19 07:53 Lymph % (Auto) 16.5 % (13.4-35.0) 12/09/19 08:08 [place] % (Auto) 5.2 % (0.0-7.3) 12/09/19 08:08 Eos % (Auto) 1.0 % (0.0-4.3) 12/09/19 08:08 Baso % (Auto) 0.8 % (0.0-1.8) 12/09/19 08:08 Lymph # 1.0 K/mm3 (1.2-5.4) L 12/09/19 08:08 [place] # 0.3 K/mm3 (0.0-0.8) 12/09/19 08:08 Eos # 0.1 K/mm3 (0.0-0.4) 12/09/19 08:08 Baso # 0.1 K/mm3 (0.0-0.1) 12/09/19 08:08 Add Manual Diff Complete 12/10/19 07:53 Total Counted 100 12/10/19 07:53 Seg Neutrophils % 76.5 % (40.0-70.0) H 12/09/19 08:08 Seg Neuts % (Manual) 80.0 % (40.0-70.0) H 12/10/19 07:53 Band Neutrophils % 0 % 12/10/19 07:53 Lymphocytes % (Manual) 13.0 % (13.4-35.0) L 12/10/19 07:53 Reactive Lymphs % (Man) 0 % 12/10/19 07:53 Monocytes % (Manual) 7.0 % (0.0-7.3) 12/10/19 07:53 Eosinophils % (Manual) 0 % (0.0-4.3) 12/10/19 07:53 Basophils % (Manual) 0 % (0.0-1.8) 12/10/19 07:53 Metamyelocytes % 0 % 12/10/19 07:53 Myelocytes % 0 % 12/10/19 07:53 Promyelocytes % 0 % 12/10/19 07:53 Blast Cells % 0 % 12/10/19 07:53 Nucleated RBC % Not Reportable 12/10/19 07:53 Seg Neutrophils # 4.8 K/mm3 (1.8-7.7) 12/09/19 08:08 Seg Neutrophils # Man 14.4 K/mm3 (1.8-7.7) H 12/10/19 07:53 Band Neutrophils # 0.0 K/mm3 12/10/19 07:53 Lymphocytes # (Manual) 2.3 K/mm3 (1.2-5.4) 12/10/19 07:53 Abs React Lymphs (Man) 0.0 K/mm3 12/10/19 07:53 Monocytes # (Manual) 1.3 K/mm3 (0.0-0.8) H 12/10/19 07:53 Eosinophils # (Manual) 0.0 K/mm3 (0.0-0.4) 12/10/19 07:53 Basophils # (Manual) 0.0 K/mm3 (0.0-0.1) 12/10/19 07:53 Metamyelocytes # 0.0 K/mm3 12/10/19 07:53 Myelocytes # 0.0 K/mm3 12/10/19 07:53 Promyelocytes # 0.0 K/mm3 12/10/19 07:53 Blast Cells # 0.0 K/mm3 12/10/19 07:53 WBC Morphology Not Reportable 12/10/19 07:53 Hypersegmented Neuts Not Reportable 12/10/19 07:53 Hyposegmented Neuts Not Reportable 12/10/19 07:53 Hypogranular Neuts Not Reportable 12/10/19 07:53 Smudge Cells Not Reportable 12/10/19 07:53 Toxic Granulation Not Reportable 12/10/19 07:53 Toxic Vacuolation Not Reportable 12/10/19 07:53 Dohle Bodies Not Reportable 12/10/19 07:53 Pelger-Huet Anomaly Not Reportable 12/10/19 07:53 Kwaku Rods Not Reportable 12/10/19 07:53 Platelet Estimate Consistent w auto 12/10/19 07:53 Clumped Platelets Not Reportable 12/10/19 07:53 Plt Clumps, EDTA Not Reportable 12/10/19 07:53 Large Platelets Not Reportable 12/10/19 07:53 Giant Platelets Rare 12/10/19 07:53 Platelet Satelliting Not Reportable 12/10/19 07:53 Plt Morphology Comment Not Reportable 12/10/19 07:53 RBC Morphology Not Reportable 12/10/19 07:53 Dimorphic RBCs Not Reportable 12/10/19 07:53 Polychromasia Not Reportable 12/10/19 07:53 Hypochromasia Not Reportable 12/10/19 07:53 Poikilocytosis Not Reportable 12/10/19 07:53 Anisocytosis Few 12/10/19 07:53 Microcytosis Not Reportable 12/10/19 07:53 Macrocytosis Not Reportable 12/10/19 07:53 Spherocytes Not Reportable 12/10/19 07:53 Pappenheimer Bodies Not Reportable 12/10/19 07:53 Sickle Cells Not Reportable 12/10/19 07:53 Target Cells Not Reportable 12/10/19 07:53 Tear Drop Cells Not Reportable 12/10/19 07:53 Ovalocytes Not Reportable 12/10/19 07:53 Helmet Cells Not Reportable 12/10/19 07:53 [place] Bodies Not Reportable 12/10/19 07:53 [place] Rings Not Reportable 12/10/19 07:53 Oden Cells Not Reportable 12/10/19 07:53 Bite Cells Not Reportable 12/10/19 07:53 Crenated Cell Not Reportable 12/10/19 07:53 Elliptocytes Not Reportable 12/10/19 07:53 Acanthocytes (Spur) Not Reportable 12/10/19 07:53 Rouleaux Not Reportable 12/10/19 07:53 Hemoglobin C Crystals Not Reportable 12/10/19 07:53 Schistocytes Not Reportable 12/10/19 07:53 Malaria parasites Not Reportable 12/10/19 07:53 Jorge Bodies Not Reportable 12/10/19 07:53 Hem Pathologist Commnt No 12/10/19 07:53 Sodium 139 mmol/L (137-145) 12/09/19 08:08 Potassium 4.1 mmol/L (3.6-5.0) 12/09/19 08:08 Chloride 102.9 mmol/L (98-107) 12/09/19 08:08 Carbon Dioxide 20 mmol/L (22-30) L 12/09/19 08:08 Anion Gap 20 mmol/L 12/09/19 08:08 BUN 9 mg/dL (7-17) 12/09/19 08:08 Creatinine 0.6 mg/dL (0.7-1.2) L 12/09/19 08:08 Estimated GFR > 60 ml/min 12/09/19 08:08 BUN/Creatinine Ratio 15 % 12/09/19 08:08 Glucose 102 mg/dL (65-100) H 12/09/19 08:08 POC Glucose 90 (70-105) 12/10/19 17:32 Lactic Acid 1.00 mmol/L (0.7-2.0) 12/09/19 09:36 Calcium 9.4 mg/dL (8.4-10.2) 12/09/19 08:08 Total Bilirubin 0.20 mg/dL (0.1-1.2) 12/08/19 19:39 AST 19 units/L (5-40) 12/08/19 19:39 ALT 11 units/L (7-56) 12/08/19 19:39 Alkaline Phosphatase 74 units/L (35-129) 12/08/19 19:39 Total Protein 8.0 g/dL (6.3-8.2) 12/08/19 19:39 Albumin 4.2 g/dL (3.9-5) 12/08/19 19:39 Albumin/Globulin Ratio 1.1 % 12/08/19 19:39 Lipase 34 units/L (13-60) 12/08/19 19:39 Urine Color Straw (Yellow) 12/09/19 02:12 Urine Turbidity Clear (Clear) 12/09/19 02:12 Urine pH 7.0 (5.0-7.0) 12/09/19 02:12 Ur Specific [place] 1.034 (1.003-1.030) H 12/09/19 02:12 Urine Protein <15 mg/dl mg/dL (Negative) 12/09/19 02:12 Urine Glucose (UA) Neg mg/dL (Negative) 12/09/19 02:12 Urine Ketones 20 mg/dL (Negative) 12/09/19 02:12 Urine Blood Neg (Negative) 12/09/19 02:12 Urine Nitrite Neg (Negative) 12/09/19 02:12 Urine Bilirubin Neg (Negative) 12/09/19 02:12 Urine Urobilinogen < 2.0 mg/dL (<2.0) 12/09/19 02:12 Ur Leukocyte Esterase Sm (Negative) 12/09/19 02:12 Urine WBC (Auto) 3.0 /HPF (0.0-6.0) 12/09/19 02:12 Urine RBC (Auto) 1.0 /HPF (0.0-6.0) 12/09/19 02:12 U Epithel Cells (Auto) 1.0 /HPF (0-13.0) 12/09/19 02:12 Urine Mucus Few /HPF 12/09/19 02:12 Active Medications - Current Medications Current Medications: Generic Name Dose Route Start Last Admin Trade Name Freq PRN Reason Stop Dose Admin Acetaminophen 650 mg 12/09/19 03:27 Tylenol DE Q4H PRN Pain MILD(1-3)/Fever >100.5/CURRY Enoxaparin Sodium 40 mg 12/09/19 10:00 12/10/19 10:14 Enoxaparin SUB-Q 40 mg QDAY USAMA Administration Hydralazine HCl 5 mg 12/09/19 03:34 Apresoline IV Q6H PRN Hypertension Sodium Chloride 1,000 mls @ 75 mls/hr 12/09/19 04:00 12/09/19 03:39 Nacl 0.45% 1000 Ml IV 75 mls/hr DIRECT USAMA Administration Lactated Ringer's 1,000 mls @ 42 mls/hr 12/09/19 12:00 12/09/19 22:02 Lactated Ringers IV 42 mls/hr DIRECT USAMA Administration Levofloxacin/Dextrose 500 mg in 100 mls @ 100 mls/hr 12/10/19 10:00 12/10/19 10:14 Levaquin 500mg/100ml IV 100 mls/hr Q24HR USAMA Administration Protocol Insulin Human Lispro 0 unit 12/09/19 18:00 12/10/19 13:39 Humalog SUB-Q Not Given Q6HR USAMA Protocol Morphine Sulfate 2 mg 12/09/19 03:27 12/10/19 13:35 Morphine IV 2 mg Q4H PRN Administration Pain, Moderate (4-6) Ondansetron HCl 4 mg 12/09/19 15:42 Zofran IV Q4H PRN Nausea And Vomiting Sodium Chloride 10 ml 12/09/19 10:00 12/09/19 21:59 Sodium Chloride Flush Syringe 10 Ml IV 10 ml BID USAMA Administration Sodium Chloride 10 ml 12/09/19 03:27 Sodium Chloride Flush Syringe 10 Ml IV PRN PRN LINE FLUSH
[2019-12-11] MEDS: INSULIN LISPRO 100 UNIT/ML SUB-Q SCH ×4 (04:27→17:42)
[2019-12-11 06:06] LABS: Basophils % (Auto) 0.4 % (0.0-1.8); Eosinophils # (Auto) 0.1 K/mm3 (0.0-0.4); Hematocrit 36.9 % (30.3-42.9); Hemoglobin 12.2 gm/dl (10.1-14.3); Lymphocytes # (Auto) 1.2 K/mm3 (1.2-5.4); Lymphocytes % (Auto) 10.8 % (13.4-35.0); Mean Corpuscular HGB Conc 33 % (30-34); Mean Corpuscular Volume 88 fl (79-97); Monocytes # (Auto) 0.7 K/mm3 (0.0-0.8); Monocytes % (Auto) 6.4 % (0.0-7.3); Platelet Count 352 K/mm3 (140-440); Red Blood Count 4.18 M/mm3 (3.65-5.03); Red Cell Distribution Width 14.6 % (13.2-15.2)
[2019-12-11] MEDS: ENOXAPARIN 40 MG/0.4 ML INJ SUB-Q SCH (09:47)
[2019-12-11] MEDS ORDERED: traMADol 50 MG TAB PO PRN (10:44)
--- NOTE | 2019-12-11 10:58 | Progress Note ---
Assessment and Plan POD#2 s/p ventral hernia repair with segmental bowel resection for small bowel incarcerated ventral hernia. stable and afebrile. will add toradol and ultram for pain control. pt said she will say when she is hungry and advance diet as tolerated. If she vomits again, will get xray. If she does well over next 24 hours OK to d/c home tomorrow. Subjective Date of service: 12/11/19 Patient Reports: Positive: no new complaints, no flatus (pt says she is very tired and did not sleep well last night. She vomited once overnight, and has since felt better since she received zofran. She says she has not passed gas and has no appetite. She is having some pain, but did not want to ask for pain medicince becasue that pain was not that bad. ) Objective Vital Signs - 12hr 12/10/19 12/10/19 12/11/19 23:00 23:54 04:13 Temperature 99.2 F 98.3 F Pulse Rate 92 H 85 Respiratory 18 20 20 Rate Blood Pressure 144/88 130/89 O2 Sat by Pulse 94 95 Oximetry 12/11/19 08:10 Temperature 98.3 F Pulse Rate 70 Respiratory 18 Rate Blood Pressure 149/85 O2 Sat by Pulse 94 Oximetry - General physical appearance well developed, no distress - Respiratory normal expansion, normal respiratory effort - Abdomen soft, other (abdominal binder in place, once opened, ventral incsion c/d/i, appropriately tender to palpation. ) - Labs 12/11/19 05:24 12/09/19 08:08
[2019-12-11] MEDS: KETOROLAC 30 MG/1 ML INJ IV SCH ×2 (12:33→17:43)
--- NOTE | 2019-12-11 18:56 | Progress Note ---
Assessment and Plan Assessment and plan: --Incarcerated ventral hernia ; Status post laparoscopic-assisted open reduction and primary repair of ventral hernia Segmental small bowel resection and anastomosis Surgery following, started clear liquids Continue postop care --Hypertension; moderate control IV hydralazine as needed for blood pressure control --History of rheumatoid arthritis on chronic steroid Start stress dose IV steroids --DVT prophylaxis; Lovenox --Full CODE STATUS Monitor closely and adjust management as needed Consults and recommendations noted and appreciated Plan of care is reviewed with the patient Hospitalist Physical - Constitutional Vitals: Temp Pulse Resp BP Pulse Ox 98.1 F 72 18 120/75 96 12/11/19 16:30 12/11/19 16:30 12/11/19 16:30 12/11/19 16:30 12/11/19 16:30 General appearance: Present: mild distress, well-nourished, obese EDWIN score - Edwin Score Age > 65: (0) No Aspirin use within the Past 7 Days: (0) No 3 or more CAD Risk Factors: (0) No 2 or more Angina events in past 24 hrs: (0) No Known CAD with more than 50% Stenosis: (0) No Elevated Cardiac Markers: (0) No ST Deviation Greater than 0.5mm: (0) No EDWIN Score: 0 Results - Labs CBC & Chem 7: 12/11/19 05:24 12/09/19 08:08 Labs: Laboratory Last Values WBC 11.0 K/mm3 (4.5-11.0) 12/11/19 05:24 RBC 4.18 M/mm3 (3.65-5.03) 12/11/19 05:24 Hgb 12.2 gm/dl (10.1-14.3) 12/11/19 05:24 Hct 36.9 % (30.3-42.9) 12/11/19 05:24 MCV 88 fl (79-97) 12/11/19 05:24 MCH 29 pg (28-32) 12/11/19 05:24 MCHC 33 % (30-34) 12/11/19 05:24 RDW 14.6 % (13.2-15.2) 12/11/19 05:24 Plt Count 352 K/mm3 (140-440) 12/11/19 05:24 Lymph % (Auto) 10.8 % (13.4-35.0) L 12/11/19 05:24 Rich % (Auto) 6.4 % (0.0-7.3) 12/11/19 05:24 Eos % (Auto) 1.0 % (0.0-4.3) 12/11/19 05:24 Baso % (Auto) 0.4 % (0.0-1.8) 12/11/19 05:24 Lymph # 1.2 K/mm3 (1.2-5.4) 12/11/19 05:24 Rich # 0.7 K/mm3 (0.0-0.8) 12/11/19 05:24 Eos # 0.1 K/mm3 (0.0-0.4) 12/11/19 05:24 Baso # 0.0 K/mm3 (0.0-0.1) 12/11/19 05:24 Add Manual Diff Complete 12/10/19 07:53 Total Counted 100 12/10/19 07:53 Seg Neutrophils % 81.4 % (40.0-70.0) H 12/11/19 05:24 Seg Neuts % (Manual) 80.0 % (40.0-70.0) H 12/10/19 07:53 Band Neutrophils % 0 % 12/10/19 07:53 Lymphocytes % (Manual) 13.0 % (13.4-35.0) L 12/10/19 07:53 Reactive Lymphs % (Man) 0 % 12/10/19 07:53 Monocytes % (Manual) 7.0 % (0.0-7.3) 12/10/19 07:53 Eosinophils % (Manual) 0 % (0.0-4.3) 12/10/19 07:53 Basophils % (Manual) 0 % (0.0-1.8) 12/10/19 07:53 Metamyelocytes % 0 % 12/10/19 07:53 Myelocytes % 0 % 12/10/19 07:53 Promyelocytes % 0 % 12/10/19 07:53 Blast Cells % 0 % 12/10/19 07:53 Nucleated RBC % Not Reportable 12/10/19 07:53 Seg Neutrophils # 8.9 K/mm3 (1.8-7.7) H 12/11/19 05:24 Seg Neutrophils # Man 14.4 K/mm3 (1.8-7.7) H 12/10/19 07:53 Band Neutrophils # 0.0 K/mm3 12/10/19 07:53 Lymphocytes # (Manual) 2.3 K/mm3 (1.2-5.4) 12/10/19 07:53 Abs React Lymphs (Man) 0.0 K/mm3 12/10/19 07:53 Monocytes # (Manual) 1.3 K/mm3 (0.0-0.8) H 12/10/19 07:53 Eosinophils # (Manual) 0.0 K/mm3 (0.0-0.4) 12/10/19 07:53 Basophils # (Manual) 0.0 K/mm3 (0.0-0.1) 12/10/19 07:53 Metamyelocytes # 0.0 K/mm3 12/10/19 07:53 Myelocytes # 0.0 K/mm3 12/10/19 07:53 Promyelocytes # 0.0 K/mm3 12/10/19 07:53 Blast Cells # 0.0 K/mm3 12/10/19 07:53 WBC Morphology Not Reportable 12/10/19 07:53 Hypersegmented Neuts Not Reportable 12/10/19 07:53 Hyposegmented Neuts Not Reportable 12/10/19 07:53 Hypogranular Neuts Not Reportable 12/10/19 07:53 Smudge Cells Not Reportable 12/10/19 07:53 Toxic Granulation Not Reportable 12/10/19 07:53 Toxic Vacuolation Not Reportable 12/10/19 07:53 Dohle Bodies Not Reportable 12/10/19 07:53 Pelger-Huet Anomaly Not Reportable 12/10/19 07:53 Kwaku Rods Not Reportable 12/10/19 07:53 Platelet Estimate Consistent w auto 12/10/19 07:53 Clumped Platelets Not Reportable 12/10/19 07:53 Plt Clumps, EDTA Not Reportable 12/10/19 07:53 Large Platelets Not Reportable 12/10/19 07:53 Giant Platelets Rare 12/10/19 07:53 Platelet Satelliting Not Reportable 12/10/19 07:53 Plt Morphology Comment Not Reportable 12/10/19 07:53 RBC Morphology Not Reportable 12/10/19 07:53 Dimorphic RBCs Not Reportable 12/10/19 07:53 Polychromasia Not Reportable 12/10/19 07:53 Hypochromasia Not Reportable 12/10/19 07:53 Poikilocytosis Not Reportable 12/10/19 07:53 Anisocytosis Few 12/10/19 07:53 Microcytosis Not Reportable 12/10/19 07:53 Macrocytosis Not Reportable 12/10/19 07:53 Spherocytes Not Reportable 12/10/19 07:53 Pappenheimer Bodies Not Reportable 12/10/19 07:53 Sickle Cells Not Reportable 12/10/19 07:53 Target Cells Not Reportable 12/10/19 07:53 Tear Drop Cells Not Reportable 12/10/19 07:53 Ovalocytes Not Reportable 12/10/19 07:53 Helmet Cells Not Reportable 12/10/19 07:53 [place] Bodies Not Reportable 12/10/19 07:53 Olive Rings Not Reportable 12/10/19 07:53 Rosy Cells Not Reportable 12/10/19 07:53 Bite Cells Not Reportable 12/10/19 07:53 Crenated Cell Not Reportable 12/10/19 07:53 Elliptocytes Not Reportable 12/10/19 07:53 Acanthocytes (Spur) Not Reportable 12/10/19 07:53 Rouleaux Not Reportable 12/10/19 07:53 Hemoglobin C Crystals Not Reportable 12/10/19 07:53 Schistocytes Not Reportable 12/10/19 07:53 Malaria parasites Not Reportable 12/10/19 07:53 Jorge Bodies Not Reportable 12/10/19 07:53 Hem Pathologist Commnt No 12/10/19 07:53 Sodium 139 mmol/L (137-145) 12/09/19 08:08 Potassium 4.1 mmol/L (3.6-5.0) 12/09/19 08:08 Chloride 102.9 mmol/L (98-107) 12/09/19 08:08 Carbon Dioxide 20 mmol/L (22-30) L 12/09/19 08:08 Anion Gap 20 mmol/L 12/09/19 08:08 BUN 9 mg/dL (7-17) 12/09/19 08:08 Creatinine 0.6 mg/dL (0.7-1.2) L 12/09/19 08:08 Estimated GFR > 60 ml/min 12/09/19 08:08 BUN/Creatinine Ratio 15 % 12/09/19 08:08 Glucose 102 mg/dL (65-100) H 12/09/19 08:08 POC Glucose 118 (70-105) H 12/11/19 17:04 Lactic Acid 1.00 mmol/L (0.7-2.0) 12/09/19 09:36 Calcium 9.4 mg/dL (8.4-10.2) 12/09/19 08:08 Total Bilirubin 0.20 mg/dL (0.1-1.2) 12/08/19 19:39 AST 19 units/L (5-40) 12/08/19 19:39 ALT 11 units/L (7-56) 12/08/19 19:39 Alkaline Phosphatase 74 units/L (35-129) 12/08/19 19:39 Total Protein 8.0 g/dL (6.3-8.2) 12/08/19 19:39 Albumin 4.2 g/dL (3.9-5) 12/08/19 19:39 Albumin/Globulin Ratio 1.1 % 12/08/19 19:39 Lipase 34 units/L (13-60) 12/08/19 19:39 Urine Color Straw (Yellow) 12/09/19 02:12 Urine Turbidity Clear (Clear) 12/09/19 02:12 Urine pH 7.0 (5.0-7.0) 12/09/19 02:12 Ur Specific [place] 1.034 (1.003-1.030) H 12/09/19 02:12 Urine Protein <15 mg/dl mg/dL (Negative) 12/09/19 02:12 Urine Glucose (UA) Neg mg/dL (Negative) 12/09/19 02:12 Urine Ketones 20 mg/dL (Negative) 12/09/19 02:12 Urine Blood Neg (Negative) 12/09/19 02:12 Urine Nitrite Neg (Negative) 12/09/19 02:12 Urine Bilirubin Neg (Negative) 12/09/19 02:12 Urine Urobilinogen < 2.0 mg/dL (<2.0) 12/09/19 02:12 Ur Leukocyte Esterase Sm (Negative) 12/09/19 02:12 Urine WBC (Auto) 3.0 /HPF (0.0-6.0) 12/09/19 02:12 Urine RBC (Auto) 1.0 /HPF (0.0-6.0) 12/09/19 02:12 U Epithel Cells (Auto) 1.0 /HPF (0-13.0) 12/09/19 02:12 Urine Mucus Few /HPF 12/09/19 02:12 Active Medications - Current Medications Current Medications: Generic Name Dose Route Start Last Admin Trade Name Freq PRN Reason Stop Dose Admin Acetaminophen 650 mg 12/09/19 03:27 Tylenol GA Q4H PRN Pain MILD(1-3)/Fever >100.5/CURRY Enoxaparin Sodium 40 mg 12/09/19 10:00 12/11/19 09:47 Enoxaparin SUB-Q 40 mg QDAY USAMA Administration Hydralazine HCl 5 mg 12/09/19 03:34 12/11/19 12:33 Apresoline IV 5 mg Q6H PRN Administration Hypertension Sodium Chloride 1,000 mls @ 75 mls/hr 12/09/19 04:00 12/09/19 03:39 Nacl 0.45% 1000 Ml IV 75 mls/hr DIRECT USAMA Administration Lactated Ringer's 1,000 mls @ 42 mls/hr 12/09/19 12:00 12/09/19 22:02 Lactated Ringers IV 42 mls/hr DIRECT USAMA Administration Levofloxacin/Dextrose 500 mg in 100 mls @ 100 mls/hr 12/10/19 10:00 12/11/19 09:47 Levaquin 500mg/100ml IV 100 mls/hr Q24HR USAMA Administration Protocol Insulin Human Lispro 0 unit 12/09/19 18:00 12/11/19 17:42 Humalog SUB-Q Not Given Q6HR USAMA Protocol Ketorolac Tromethamine 15 mg 12/11/19 12:00 12/11/19 17:43 Toradol IV 12/16/19 11:59 15 mg Q6HR USAMA Administration Morphine Sulfate 2 mg 12/09/19 03:27 12/10/19 13:35 Morphine IV 2 mg Q4H PRN Administration Pain, Moderate (4-6) Ondansetron HCl 4 mg 12/09/19 15:42 Zofran IV Q4H PRN Nausea And Vomiting Sodium Chloride 10 ml 12/09/19 10:00 12/11/19 09:47 Sodium Chloride Flush Syringe 10 Ml IV 10 ml BID USAMA Administration Sodium Chloride 10 ml 12/09/19 03:27 Sodium Chloride Flush Syringe 10 Ml IV PRN PRN LINE FLUSH Tramadol HCl 50 mg 12/11/19 10:44 Ultram PO Q4H PRN Pain, Moderate (4-6)
[2019-12-12] MEDS: KETOROLAC 30 MG/1 ML INJ IV SCH ×3 (00:23→12:36)
[2019-12-12] MEDS: INSULIN LISPRO 100 UNIT/ML SUB-Q SCH ×3 (00:27→12:11)
[2019-12-12] MEDS: LACTATED RINGERS 1,000 ML IV SCH (01:14)
[2019-12-12] MEDS: ENOXAPARIN 40 MG/0.4 ML INJ SUB-Q SCH (09:51)
--- NOTE | 2019-12-12 11:00 | Progress Note ---
Assessment and Plan POD#3 s/p ventral hernia repair with segmental bowel resection for bowel ischemia. Afebrile, stable with good pain control. Will advance to soft diet and OK to d/c home. Pt can follow up with me in two weeks [phone] She can shower, and encouraged to wear abdominal binder consistently through out the day except for when sleeping. Subjective Date of service: 12/12/19 Patient Reports: Positive: no new complaints, feels better, tolerating liquids well (pt says she is feeling much better) Objective Vital Signs - 12hr 12/12/19 12/12/19 06:06 07:00 Temperature 97.9 F 97.8 F Pulse Rate 68 63 Respiratory 16 16 Rate Blood Pressure 128/70 112/68 [Left] O2 Sat by Pulse 97 99 Oximetry - General physical appearance well developed, no distress - Respiratory normal expansion, normal respiratory effort - Abdomen soft, not tender - Labs 12/11/19 05:24 12/09/19 08:08
--- NOTE | 2019-12-12 14:37 | Discharge Summary ---
Providers - Providers Date of Admission: 12/09/19 02:16 Date of discharge: 12/12/19 Attending physician: OTTO KING 12/09/19 01:57 Consult to Physician [CONS] Stat Comment: Consulting Provider: SUZANNE JOYNER Physician Instructions: Reason For Exam: incarcerated hernia Primary care physician: CORRECTIONS LIEUTENANT Hospitalization Condition: Fair Procedures: Status post laparoscopic-assisted open reduction and primary repair of ventral hernia Segmental small bowel resection and anastomosis Disposition: TO HOME OR SELFCARE Time spent for discharge: 32 min Core Measure Documentation - Palliative Care Palliative Care/ Comfort Measures: Not Applicable - Core Measures Any of the following diagnoses?: none Exam - Constitutional Vitals: Temp Pulse Resp BP Pulse Ox 97 F L 82 16 113/66 96 12/12/19 11:00 12/12/19 11:00 12/12/19 11:00 12/12/19 11:00 12/12/19 11:00 Plan Activity: advance as tolerated Diet: advance as tolerated Additional Instructions: soft diet , advance as tolerated. follow up with Dr. Joyner in two weeks [phone]. you can shower, and encouraged to wear abdominal binder consistently through out the day except for when sleeping. Follow up with: CARL VIDAL MD [Primary Care Provider] - 3-5 Days SUZANNE JOYNER MD [Staff Physician] - 14 Days Prescriptions: Ketorolac [Toradol] 10 mg PO Q8H PRN #15 tablet PRN Reason: Pain
[2019-12-12 15:36] VITALS: BP 126/71
== END 2019-12-12 17:00 | disposition home or self-care (01) | DRG 331 ==
LOC: ED 19:08 → 3B-SURG 12-09 02:16
PROVIDERS: ADMIT Internal Medicine; ATTEND Internal Medicine
PROC: 0WQF0ZZ Repair Abdominal Wall, Open Approach (ICD-10-PCS; principal; 2019-12-09)
PROC: 0DB80ZZ Excision of Small Intestine, Open Approach (ICD-10-PCS; 2019-12-09)
PROC: 0WJF4ZZ Inspection of Abdominal Wall, Percutaneous Endoscopic Approach (ICD-10-PCS; 2019-12-09)
DX: K43.6 Other and unspecified ventral hernia with obstruction, without gangrene (principal); E11.9 Type 2 diabetes mellitus without complications; M19.90 Unspecified osteoarthritis, unspecified site; I10 Essential (primary) hypertension; M06.9 Rheumatoid arthritis, unspecified; Z82.49 Family history of ischemic heart disease and other diseases of the circulatory system
CPT/HCPCS: 36415; 74177; 80048; 80053; 81001; 82140; 82962; 83690; 85007; 85025; 88302; 88307; G0378; J0360; J1100; J1170; J1650; J1720; J1885; J1956; J2060; J2250; J2270; J2370; J2405; J2704; J2710; J3010; J7030; J7120; Q9967